=== PATIENT | male | born 1940 | race Caucasian/White ===

== ENCOUNTER 2021-01-01 08:44 | Emergency (ER) | payer OTHER, MEDICARE ==
[~2021-01-01 08:44] MED LIST: BACTRIM DS TAB1 EACH PO
[2021-01-01 09:49] LABS: BASOPHIL 0.5 % (0-2); EOSINOPHIL 1.8 % (0-7); HCT 37.7 % (42.0-52.0); HGB 12.3 g/dl (13.2-18.0); LYMPHOCYTE 17.1 % (15-48); MCH 31.6 pg (25.0-31.0); MCHC 32.6 g/dL (32.0-36.0); MCV 96.9 fL (78.0-100.0); MONOCYTE 5.5 % (0-12); NEUTROPHIL 74.6 % (41-80); NRBC 0; PLT 145 K/uL (150-400); RBC 3.89 M/uL (4.70-6.00); RDW 12.5 % (11.5-14.0)
[2021-01-01 09:59] LABS: BUN/CREAT RATIO (CALC) 21.8 RATIO; CREATININE 1.24 mg/dL (0.67-1.17); POTASSIUM 5.1 mmol/L (3.5-5.1)
== END 2021-01-01 14:30 | disposition home or self-care (01) ==
LOC: FER 08:44
PROVIDERS: Emergency Medicine
DX: S22.21XA Fracture of manubrium, initial encounter for closed fracture (principal); S21.119A Laceration without foreign body of unspecified front wall of thorax without penetration into thoracic cavity, initial encounter; S51.012A Laceration without foreign body of left elbow, initial encounter; S80.02XA Contusion of left knee, initial encounter; S80.01XA Contusion of right knee, initial encounter; G20 Parkinson's disease; Z79.82 Long term (current) use of aspirin; Z88.0 Allergy status to penicillin; V44.5XXA Car driver injured in collision with heavy transport vehicle or bus in traffic accident, initial encounter; Y92.410 Unspecified street and highway as the place of occurrence of the external cause
CPT/HCPCS: 36415; 70450; 71275; 72125; 73120; 73560; 80048; 84484; 85025; 93005; Q9967

== ENCOUNTER 2021-03-14 17:14 | Emergency (ER) | payer MEDICARE, OTHER ==
[~2021-03-14 17:14] MED LIST changes: +ASPIRIN EC81 MG PO; +CARBIDOPA-LEVO1 EAC6 PO; +FLAX OIL1000 MG PO; +FLUOXETINE HCL20 MG PO; +KRILL OIL 1,001 EAC1 PO; +LOVAZA1 GM PO; +ROSUVASTATIN CA20 MG PO; +VITAMIN D250 MC1 PO; +VITAMIN E45 MG PO
[2021-03-14 18:57] LABS: BASOPHIL 0.5 % (0-2); EOSINOPHIL 2.1 % (0-7); HCT 35.4 % (42.0-52.0); HGB 11.4 g/dl (13.2-18.0); LYMPHOCYTE 15.3 % (15-48); MCH 29.9 pg (25.0-31.0); MCHC 32.2 g/dL (32.0-36.0); MCV 92.9 fL (78.0-100.0); MONOCYTE 5.3 % (0-12); MPV 10.1 fL (6.0-9.5); NEUTROPHIL 75.8 % (41-80); NRBC 0; PLT 182 K/uL (150-400); RBC 3.81 M/uL (4.70-6.00); RDW 13.7 % (11.5-14.0); WBC 6.1 K/uL (4.0-10.5)
[2021-03-14 19:13] LABS: ALBUMIN 3.2 g/dL (3.4-5.0); ALKALINE PHOSHATASE 88 U/L (46-116); ALT <6 U/L (16-63); AST 20 U/L (15-37); BILIRUBIN - TOTAL 0.8 mg/dL (0.2-1.0); BUN 29 mg/dL (7-18); BUN/CREAT RATIO (CALC) 20.3 RATIO; CHLORIDE 100 mmol/L (98-107); CO2 (BICARBONATE) 25 mmol/L (21-32); CREATININE 1.43 mg/dL (0.67-1.17); GLOBULIN (CALCULATION) 3.1 g/dL; GLUCOSE 74 mg/dL (74-106); LIPASE 37 U/L (73-393); POTASSIUM 4.9 mmol/L (3.5-5.1); TOTAL PROTEIN 6.3 g/dL (6.4-8.2)
== END 2021-03-14 21:33 | disposition home or self-care (01) ==
LOC: FER 17:14
PROVIDERS: Physician Assistant
DX: R10.12 Left upper quadrant pain (principal); R19.7 Diarrhea, unspecified; G20 Parkinson's disease; Z88.0 Allergy status to penicillin; Z88.8 Allergy status to other drugs, medicaments and biological substances
CPT/HCPCS: 36415; 80053; 83690; 85025; J7040; Q9967